=== PATIENT | female | born 1975 | race African-American/Black ===

== ENCOUNTER 2019-07-03 07:08 | Emergency (ER) | payer OTHER ==
[2019-07-03 07:17] VITALS: BMI 28.2
--- NOTE | 2019-07-03 07:36 | PDOC ---
History of Present Illness - General Chief Complaint: Rectal Bleed Stated Complaint: BLOOD IN STOOL Time Seen by Provider: 07/03/19 07:35 History Source: Patient Exam Limitations: No Limitations - History of Present Illness Initial Comments: Pt is a 44 yo F, with PMH of IDDM with gastroparesis, and anemia, who is presenting after 1 episode of painless hematochezia this morning. Pt states she felt the urge to defecate and passed bright red clots per rectum into the toilet. Pt endorses positional light-headedness, early satiety, and unintentional weight loss (unknown amount) over the past few weeks. She has alternating loose brown stool and constipation which she can control with immodium. Pt denies any fevers/chills, headache, vision changes, syncope, chest pain, palpitations, SOB, nausea/vomiting, abdominal pain, urinary symptoms, or leg swelling. Pt had endoscopy and colonoscopy in 2017 (Dr. Wynn/Jorge) with only mild antrum gastritis Allergies: NKDA PCP: [facility] Social: Pt denies any cigarette, alcohol, or drug use. Pt denies any recent travel or sick contacts. Surgical: no relevant history. Family: Father - Chron's 07/03/19 08:34 Past History - Travel Traveled outside of the country in the last 30 days: No Close contact w/someone who was outside of country & ill: No - Past Medical History Allergies/Adverse Reactions: Allergies Allergy/AdvReac Type Severity Reaction Status Date / Time No Known Allergies Allergy Verified 07/03/19 07:18 Home Medications: Ambulatory Orders Insulin Detemir [Levemir Flextouch] 30 unit SQ BID 07/03/19 Insulin Sliding Scale [Novolog Vial Sliding Scale -] 0 units SQ TIDAC 07/03/19 COPD: No Diabetes: Yes - Surgical History Cholecystectomy: Yes - Psycho Social/Smoking Cessation Hx Smoking History: Never smoked Hx Alcohol Use: Yes (occasionally) Drug/Substance Use Hx: No Abd/GI Specific PMHX - Complaint Specific PMHX Colitis: No Diverticulitis: No GERD: No Irritable Bowel Synd (IBS): No GI Ulcer Disease: No Other History: gastroparesis Review of Systems - Review of Systems Able to Perform ROS?: Yes Is the patient limited Indian proficient: No Constitutional: Yes: Unintentional Wgt. Loss. No: Chills, Diaphoresis, Fever, Loss of Appetite, Malaise, Night Sweats, Weakness, Weight Stable HEENTM: No: Recent change in vision, Nose Congestion, Throat Pain, Throat Swelling, Difficulty Swallowing Respiratory: No: Cough, Orthopnea, Shortness of Breath Cardiac (ROS): Yes: Lightheadedness. No: Chest Pain, Edema, Irregular Heart Rate, Palpitations, Syncope, Chest Tightness ABD/GI: Yes: Constipated, Diarrhea, Rectal Bleeding. No: Abd. Pain w/ defecation, Blood Streaked Bowels, Nausea, Poor Appetite, Poor Fluid Intake, Vomiting, Indigestion, Abdominal cramping, Tarry Stools : No: Burning, Dysuria, Frequency, Pain, Urgency Musculoskeletal: No: Back Pain, Joint Pain, Joint Swelling, Muscle Pain Integumentary: No: Rash Neurological: No: Headache, Numbness, Weakness, Unsteady Gait, Dizziness Psychiatric: No: Sleep Pattern Change, Change in Appetite Endocrine: No: Increased Urine, Change in Weight Hematologic/Lymphatic: Yes: Anemia. No: Blood Clots, Easy Bleeding, Easy Bruising All Other Systems: Reviewed and Negative *Physical Exam - Vital Signs Last Vital Signs Temp Pulse Resp BP Pulse Ox 99.0 F 79 16 102/45 L 99 07/03/19 07:13 07/03/19 07:13 07/03/19 07:13 07/03/19 07:13 07/03/19 07:13 - Physical Exam Comments: Vitals stable, pt afebrile. Pt in NAD, normal body habitus. Ambulatory on her own into the ED. Pt alert and oriented x3. 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 No midline spinal tenderness, step-offs, or crepitus. Head normocephalic, atraumatic. Eyes PERRLA, EOMI. Oropharynx without erythema or exudates, no LAD b/l. No nasal congestion. Hearing intact. Clear heart sounds, S1/S2, no JVD, b/l pedal edema, or heart murmur. Clear lung sounds, no respiratory distress, wheezes, crackles, or accessory muscle use. No abdominal or CVA tenderness to palpation, no rebound, no guarding. Abdomen soft, non-distended, and with normoactive bowel sounds. External hemorrhoids with no obvious internal polyps or irregular mucosa noted. No active bleeding or poor tone on exam. Skin without jaundice or rash. 07/03/19 08:41 ED Treatment Course - LABORATORY CBC & Chemistry Diagram: 07/03/19 08:15 07/03/19 08:15 Medical Decision Making - Medical Decision Making Pt is a 44 yo F, with painless hematochezia. Prior endoscopy showed only mild gastritis, pt denies any recent bloody stools or excessive diarrhea, constipation, vomiting. Recent weight loss and early satiety. Will evaluate with labs and fecal occult test to look for anemia, electrolyte abnormalities, need for transfusion. FOBT negative. Labs pending. Pt requested tylenol for mild abdominal cramping which is normal to her baseline abdominal discomfort. 07/03/19 08:42 H/H stable. CMP generally WNL, mildly elevated K but asymptomatic, pt not renal pt. Pt safe for d/c with GI follow-up. Strict return precautions provided. 07/03/19 09:28 Discharge - Discharge Information Problems reviewed: Yes Clinical Impression/Diagnosis: Rectal bleeding Condition: Stable Disposition: HOME - Admission No - Follow up/Referral Referrals: Ivis Ovalles MD [Primary Care Provider] - Constance Wynn MD [Staff Physician] - - Patient Discharge Instructions Patient Printed Discharge Instructions: DI for Rectal Bleeding Additional Instructions: You were seen in the ER today for rectal bleeding. The results of your labs and imaging today were normal. Please follow-up with your primary care doctor and GI (DR. Wynn) within 1-2 days to discuss your visit and make sure your symptoms have improved. Please return to the ER if you have any worsening pain or bleeding, development of fevers or chills, loss of consciousness, inability to tolerate food or fluids, or any other concerns. - Post Discharge Activity
--- NOTE | 2019-07-03 07:57 | PDOC ---
Attending Attestation - Resident Resident Name: Shauna David - ED Attending Attestation I have performed the following: I have examined & evaluated the patient, The case was reviewed & discussed with the resident, I agree w/resident's findings & plan, Exceptions are as noted - HPI HPI: 07/03/19 07:57 44-year-old female with a history of IDDM with gastroparesis, and anemia who presents emergency department with a complaint of rectal bleeding. Pt reports 1 episode of painless hematochezia this morning (did not fill the toilet bowl). No prior episodes of rectal bleeding, she has had alternating loose brown stool and constipation No fevers/chills No diarrhea No straining No nausea or vomiting Pt had endoscopy and colonoscopy in 2017 (Dr. Wynn/Jorge) with only mild antrum gastritis Allergies: NKDA PCP: Waldemar (lst seen 3 months ago) 07/03/19 09:21 - Physicial Exam PE: 07/03/19 07:57 GENERAL: The patient is in no acute distress. ENT: Moist mucous membranes NECK: Normal range of motion, supple, no nuchal rigidity (+) LAD LUNGS: Breath sounds equal, clear to auscultation bilaterally. No wheezes, and no crackles. HEART:Regular rate and rhythm, normal S1 and S2 without murmur, rub or gallop. ABDOMEN: Soft, nontender RECTAL: per Dr David EXTREMITIES: Normal range of motion, no edema. NEUROLOGICAL: Cranial nerves II through XII grossly intact. Normal speech. No focal neurological deficits. SKIN: Warm, Dry, normal turgor, no rashes or lesions noted. 07/03/19 09:24 - Medical Decision Making 07/03/19 09:20 Laboratory Tests 07/03/19 07/03/19 07/03/19 08:07 08:15 08:15 WBC 7.0 Hgb 12.2 Hct 37.7 Plt Count 257 INR Sodium 141 Potassium 5.3 H Chloride 110 H Carbon Dioxide 28 BUN 7.0 Creatinine 0.6 Random Glucose 84 Stool Occult Blood Negative 07/03/19 08:15 WBC Hgb Hct Plt Count INR 1.10 H Sodium Potassium Chloride Carbon Dioxide BUN Creatinine Random Glucose Stool Occult Blood 07/03/19 09:25 Will discharge to home Follow up with PMD and with GI Return to the ER for worsening bleeding I discussed the physical exam findings, ancillary test results and final diagnoses with the patient. I answered all of the patient's questions. The patient was satisfied with the care received and felt comfortable with the discharge plan and treatment plan. The patient will call their primary care physician within 24 hours to arrange follow-up and will return to the Emergency Department with any new, persistent or worsening symptoms.
[2019-07-03 08:39] LABS: BASO % 0.5 % (0-2.0); EOS % 0.6 % (0-4.5); HEMATOCRIT 37.7 % (32.4-45.2); HEMOGLOBIN 12.2 GM/dL (10.7-15.3); LYMPH % 24.1 % (8-40); MCH 27.3 pg (25.7-33.7); MCHC 32.4 g/dl (32.0-36.0); MEAN CELL VOLUME 84.2 fl (80-96); MONO % 8.9 % (3.8-10.2); NEUT % 65.9 % (42.8-82.8); PLATELET COUNT 257 K/MM3 (134-434); RBC 4.48 M/mm3 (3.60-5.2)
[2019-07-03] MEDS ORDERED: ACETAMINOPHEN 325 MG TABLET (FP) PO ONE (08:41)
[2019-07-03 08:55] LABS: INR 1.1 (0.83-1.09)
[2019-07-03] MEDS ORDERED: ACETAMINOPHEN 325 MG TABLET (FP) ONE (08:59)
[2019-07-03 09:16] LABS: ALBUMIN 3.1 g/dl (3.4-5.0); BILIRUBIN,TOTAL 0.9 mg/dL (0.2-1); CALCIUM 8.5 mg/dL (8.5-10.1); CREATININE 0.6 mg/dL (0.55-1.3); POTASSIUM 5.3 mmol/L (3.5-5.1); TOT PROT 6.4 g/dl (6.4-8.2)
[2019-07-03 09:35] VITALS: BP 112/66; PULSE 70; TEMP 98
== END 2019-07-03 09:57 | disposition home or self-care (01) ==
LOC: JER 07:08
DX: K92.1 Melena (principal); E10.43 Type 1 diabetes mellitus with diabetic autonomic (poly)neuropathy; K31.84 Gastroparesis; Z79.4 Long term (current) use of insulin; D64.9 Anemia, unspecified; Z87.19 Personal history of other diseases of the digestive system; Z90.49 Acquired absence of other specified parts of digestive tract
CPT/HCPCS: 36415; 80053; 82272; 85025; 85610; 86850; 86900; 86901; 99283-25